=== PATIENT | male | born 1950 | race Caucasian/White ===

== ENCOUNTER 2021-05-03 23:48 | Observation (INO) | payer MEDICARE, MEDICAID ==
[2021-05-04 01:47] LABS: Troponin I Less than 0.010 ng/mL (< 0.028)
[2021-05-04] MEDS ORDERED: hydrALAZINE 20 MG/ML VIAL SLOW IVP PRN (01:58)
[2021-05-04] MEDS ORDERED: Acetaminophen 325 MG TAB PO PRN (01:58)
[2021-05-04] MEDS ORDERED: Ondansetron ODT 4 MG TAB PO PRN (01:58)
[2021-05-04] MEDS ORDERED: Acetaminophen 650 MG Suppository PR PRN (01:58)
[2021-05-04] MEDS ORDERED: Ondansetron PF 4 MG/2 ML Vial IVP PRN (01:58)
[2021-05-04 04:34] VITALS: BMI 24.5
[2021-05-04 04:49] LABS: Hemoglobin 15.6 g/dL (14.0-18.0); Mean Corpuscular HGB CONC 31.9 g/dL (32.0-36.0); Mean Corpuscular Hemoglobin 31.6 pg (27.0-31.0); Mean Platelet Volume 6.9 fL (7.4-10.4); Platelet Count 459 thou/uL (130-400); RBC Distribution Width 12.1 % (11.5-14.5); Red Blood Cell (RBC) Count 4.95 mill/uL (4.70-6.10); White Blood Cell (WBC) Count 13.3 thou/uL (4.8-10.8)
[2021-05-04 05:04] LABS: Anion Gap 10 mmol/L (10-20); BUN (Urea Nitrogen) 11 mg/dL (8.4-25.7); Calc. Creatinine Clearance 76 mL/min (70-130); Calcium 9.4 mg/dL (7.8-10.44); Carbon Dioxide 24 mmol/L (23-31); Cardiac Risk 4.7 (Less than 4.5); Chloride 107 mmol/L (98-107); Cholesterol 159 mg/dl (< 200 Desired); Glucose 83 mg/dL (80-115); HDL Cholesterol 34 mg/dL (>60 Neg Risk); LDL Cholesterol, Calculated 103 mg/dL; Potassium 4.2 mmol/L (3.5-5.1); Sodium 137 mmol/L (136-145); Triglycerides 108 mg/dL (Less than 150)
[2021-05-04 05:09] LABS: Troponin I Less than 0.010 ng/mL (< 0.028)
[2021-05-04 06:15] LABS: Eosinophils 3 % (0-10); Lymphocytes 46 % (21-51); MDiff Complete? YES; Monocytes 10 % (0-10); Neutrophil 39 % (42-75); Platelet Morphology Comment Appears Increased; Reactive Lymphocytes 2 % (0-10)
[2021-05-04] MEDS: Aspirin 81 mg Enteric Coated Tablet PO SCH (08:26)
[2021-05-04] MEDS: Enoxaparin Sodium 40 MG/0.4 ML SYRINGE SC SCH (08:26)
[2021-05-04] MEDS ORDERED: FLU VACC QS2021-22(65YR UP)/PF 240 MCG/0.7 ML SYRINGE IM ONE (09:00)
[2021-05-04] MEDS ORDERED: Clopidogrel Bisulfate 75 MG TAB PO SCH (13:00)
[2021-05-04 16:57] LABS: SARS-CoV-2 PCR by NAA Not Detected (NotDetected)
[2021-05-04] MEDS ORDERED: Atorvastatin Calcium 40 MG TAB PO SCH (21:00)
[2021-05-05] MEDS ORDERED: Clopidogrel Bisulfate 75 MG TAB PO SCH (09:00)
[2021-05-05] MEDS: Enoxaparin Sodium 40 MG/0.4 ML SYRINGE SC SCH (09:04)
[2021-05-05] MEDS: Aspirin 81 mg Enteric Coated Tablet PO SCH (09:04)
[2021-05-05 11:58] VITALS: BP 177/84; TEMP 98.1
== END 2021-05-05 14:18 | disposition home or self-care (01) ==
LOC: ERS 23:48 → 3SE 05-04 00:53
PROVIDERS: ADMIT Student in an Organized Health Care Education/Training Program; ATTEND Internal Medicine
DX: R47.81 Slurred speech (principal); R20.0 Anesthesia of skin; R47.1 Dysarthria and anarthria; I65.23 Occlusion and stenosis of bilateral carotid arteries; I10 Essential (primary) hypertension; I73.9 Peripheral vascular disease, unspecified; J44.9 Chronic obstructive pulmonary disease, unspecified; F17.210 Nicotine dependence, cigarettes, uncomplicated; D72.829 Elevated white blood cell count, unspecified; E78.5 Hyperlipidemia, unspecified; R00.1 Bradycardia, unspecified; Z23 Encounter for immunization; Z20.822 Contact with and (suspected) exposure to COVID-19
CPT/HCPCS: 70551; 80048; 80061; 84484 ×2; 85025; 90662; 93306; 96372; 97116; 97139 ×4; 99285; G0008; G0378 ×3; U0003; U0005; 36415; 90471; J1650

== ENCOUNTER 2023-08-22 18:00 | Inpatient (IN) | payer MEDICARE, MEDICAID, OTHER ==
[2023-08-22 21:41] VITALS: BMI 19.7
[2023-08-22] MEDS ORDERED: Acetaminophen 650 MG Suppository PR PRN (22:01)
[2023-08-22] MEDS ORDERED: Acetaminophen 325 MG TAB PO PRN (22:01)
[2023-08-22] MEDS ORDERED: Aspirin Chewable 81 MG TAB PO SCH (22:30)
[2023-08-22] MEDS ORDERED: Atorvastatin Calcium 40 MG TAB PO SCH (22:30)
[2023-08-23 06:46] LABS: #Basophils 0.1 thou/uL (0.0-0.2); #Eosinphils 0.4 thou/uL (0.0-0.7); #Monocytes 1.9 thou/uL (0.11-0.59); #Neutrophils 4.8 thou/uL (1.40-6.50); %Basophils 0.7 % (0.0-1.0); %Eosinophils 3.1 % (0.0-10.0); %Lymphocytes 36.4 % (21.0-51.0); %Monocytes 16.7 % (0.0-10.0); %Neutrophils 42.8 % (42.0-75.0); Hemoglobin 14.9 g/dL (14.0-18.0); Mean Corpuscular HGB CONC 33.9 g/dL (32.0-36.0); Mean Corpuscular Hemoglobin 33.4 pg (27.0-31.0); Mean Corpuscular Volume 98.7 fl (78.0-98.0); Mean Platelet Volume 9.5 fL (7.4-10.4); Platelet Count 382 10x3/uL (130-400); RBC Distribution Width 13.8 % (11.5-14.5); Red Blood Cell (RBC) Count 4.46 mill/uL (4.70-6.10); White Blood Cell (WBC) Count 11.3 10x3/uL (4.8-10.8)
[2023-08-23 07:11] LABS: Anion Gap 14 mmol/L (10-20); BUN (Urea Nitrogen) 9 mg/dL (8.4-25.7); Calc. Creatinine Clearance 80 mL/min (70-130); Calcium 9.2 mg/dL (7.8-10.44); Carbon Dioxide 24 mmol/L (23-31); Cardiac Risk 3.4 (Less than 4.5); Chloride 105 mmol/L (98-107); Cholesterol 131 mg/dl (< 200 Desired); Estimated GFR 96; Glucose 84 mg/dL (83-110); HDL Cholesterol 38 mg/dL (>60 Neg Risk); LDL Cholesterol, Calculated 74 mg/dL; Potassium 3.9 mmol/L (3.5-5.1); Sodium 139 mmol/L (136-145); Triglycerides 95 mg/dL (Less than 150)
[2023-08-23] MEDS ORDERED: FLU VACC QS2023(65UP)/MF59C/PF 60 MCG/0.5 ML SYRINGE IM ONE (09:00)
[2023-08-23] MEDS ORDERED: Enoxaparin 40 MG (0.4 mL) SYRINGE SC SCH (09:00)
[2023-08-23] MEDS: Aspirin 81 mg Enteric Coated Tablet PO SCH (09:05)
[2023-08-23] MEDS: Atorvastatin Calcium 40 MG TAB PO SCH (21:17)
[2023-08-24] MEDS ORDERED: CEFAZOLIN 2 GM in Sodium Chloride 0.9% 100 ML IVPB SCH (06:00)
[2023-08-24] MEDS: Aspirin 81 mg Enteric Coated Tablet PO SCH (08:45)
[2023-08-24] MEDS ORDERED: Heparin 5,000 UNITS/ML VIAL ONE (11:14)
[2023-08-24] MEDS ORDERED: Bupivacaine PF 0.5% 30 ML VIAL ONE (11:15)
[2023-08-24] MEDS ORDERED: Protamine Sulfate 50 MG/5 ML VIAL ONE (11:15)
[2023-08-24] MEDS ORDERED: EPINEPHrine 1 MG/ML VIAL ONE (11:15)
[2023-08-24] MEDS ORDERED: Etomidate 40 MG (20 mL) VIAL ONE (11:16)
[2023-08-24] MEDS ORDERED: PHENYLEPHRINE-NS 100 MCG/ML 10 ML SYRINGE ONE (11:19)
[2023-08-24] MEDS ORDERED: CEFAZOLIN 2 GM VIAL ONE (11:25)
[2023-08-24] MEDS ORDERED: Sodium Chloride 0.9% 100 ML ONE (11:25)
[2023-08-24] MEDS ORDERED: fentaNYL PF 100 MCG/2 ML SYRINGE ONE ×2 (11:32→11:50)
[2023-08-24] MEDS ORDERED: Rocuronium Bromide 10 MG/ML (10ML VIAL) ONE (11:39)
[2023-08-24] MEDS ORDERED: Heparin 10,000 UNITS/ 10 ML VIAL ONE (11:57)
[2023-08-24] MEDS ORDERED: ePHEDrine Sulfate 50 MG/10 ML VIAL ONE (11:59)
[2023-08-24] MEDS ORDERED: Ondansetron PF 4 MG/2 ML Vial ONE (12:33)
[2023-08-24] MEDS ORDERED: SUGAMMADEX SODIUM 200 MG/2 ML VIAL ONE (12:35)
[2023-08-24] MEDS ORDERED: Labetalol HCl 100 MG/20 ML VIAL ONE (12:41)
[2023-08-24] MEDS ORDERED: hydrALAZINE 20 MG/ML VIAL SLOW IVP PRN (12:44)
[2023-08-24] MEDS ORDERED: traMADol HCl 50 MG TAB PO PRN (12:44)
[2023-08-24] MEDS ORDERED: Nitroglycerin 50 MG/250 ML BOT 250 ML IVPB PRN (12:44)
[2023-08-24] MEDS ORDERED: Phenylephrine 40 MG in Sodium Chloride 0.9% 250 ML 250 ML IVPB PRN (12:44)
[2023-08-24] MEDS ORDERED: Acetaminophen 325 MG TAB PO PRN (12:44)
[2023-08-24] MEDS ORDERED: Ipratropium/Albuterol 3 ML NEB NEB PRN (12:44)
[2023-08-24] MEDS ORDERED: fentaNYL 50 mcg/mL 1 mL Vial SLOW IVP PRN (12:44)
[2023-08-24] MEDS ORDERED: Ondansetron PF 4 MG/2 ML Vial IVP PRN (12:44)
[2023-08-24] MEDS ORDERED: Ondansetron HCl/PF 4 MG/2 ML Vial IVP PRN (13:01)
[2023-08-24] MEDS: Sodium Chloride 0.9% 1,000 ML IV SCH (13:44)
[2023-08-24 13:46] VITALS: BP 156/80
[2023-08-24] MEDS: traMADol HCl 50 MG TAB PO PRN (14:06)
[2023-08-24] MEDS: Ipratropium/Albuterol 3 ML NEB NEB SCH ×2 (14:14→19:09)
[2023-08-24] MEDS: CEFAZOLIN 2 GM in Sodium Chloride 0.9% 100 ML IVPB SCH (21:15)
[2023-08-24] MEDS: Atorvastatin Calcium 40 MG TAB PO SCH (21:18)
[2023-08-25] MEDS: Sodium Chloride 0.9% 1,000 ML IV SCH ×2 (00:13→07:57)
[2023-08-25] MEDS: Ipratropium/Albuterol 3 ML NEB NEB SCH ×3 (00:41→13:36)
[2023-08-25] MEDS: CEFAZOLIN 2 GM in Sodium Chloride 0.9% 100 ML IVPB SCH ×2 (03:49→12:45)
[2023-08-25 05:44] LABS: #Basophils 0.1 thou/uL (0.0-0.2); #Eosinphils 0.2 thou/uL (0.0-0.7); #Monocytes 1.9 thou/uL (0.11-0.59); %Basophils 0.6 % (0.0-1.0); %Eosinophils 1.5 % (0.0-10.0); %Lymphocytes 27.6 % (21.0-51.0); %Monocytes 14.7 % (0.0-10.0); %Neutrophils 55.4 % (42.0-75.0); Hematocrit 40.5 % (42.0-52.0); Hemoglobin 13.4 g/dL (14.0-18.0); Mean Corpuscular HGB CONC 33.1 g/dL (32.0-36.0); Mean Corpuscular Hemoglobin 33.6 pg (27.0-31.0); Mean Corpuscular Volume 101.5 fl (78.0-98.0); Mean Platelet Volume 9.1 fL (7.4-10.4); Platelet Count 372 10x3/uL (130-400); RBC Distribution Width 13.9 % (11.5-14.5); Red Blood Cell (RBC) Count 3.99 mill/uL (4.70-6.10); White Blood Cell (WBC) Count 12.7 10x3/uL (4.8-10.8)
[2023-08-25 06:11] LABS: Anion Gap 9 mmol/L (10-20); BUN (Urea Nitrogen) 10 mg/dL (8.4-25.7); Calc. Creatinine Clearance 72 mL/min (70-130); Calcium 8.6 mg/dL (7.8-10.44); Carbon Dioxide 24 mmol/L (23-31); Chloride 107 mmol/L (98-107); Estimated GFR 93; Glucose 70 mg/dL (83-110); Potassium 4.1 mmol/L (3.5-5.1); Sodium 136 mmol/L (136-145)
[2023-08-25 08:09] VITALS: TEMP 98.6
[2023-08-25] MEDS ORDERED: Aspirin 325 mg Enteric Coated Tablet PO SCH (09:00)
[2023-08-25] MEDS: traMADol HCl 50 MG TAB PO PRN (12:44)
== END 2023-08-25 15:20 | disposition home or self-care (01) | DRG 38 ==
LOC: 2SE 21:00 → OBSVTOIN 22:01 → CCU 08-24 11:26 → 2SE 08-24 11:26 → CCU 08-24 12:59
PROVIDERS: ADMIT Family Medicine; ATTEND Family Medicine
PROC: 4A10X4Z Monitoring of Central Nervous Electrical Activity, External Approach (ICD-10-PCS; 2023-08-23)
PROC: 03CN0ZZ Extirpation of Matter from Left External Carotid Artery, Open Approach (ICD-10-PCS; principal; 2023-08-24)
PROC: 03UN0KZ Supplement Left External Carotid Artery with Nonautologous Tissue Substitute, Open Approach (ICD-10-PCS; 2023-08-24)
DX: I63.232 Cerebral infarction due to unspecified occlusion or stenosis of left carotid arteries (principal); G81.90 Hemiplegia, unspecified affecting unspecified side; F17.210 Nicotine dependence, cigarettes, uncomplicated; I10 Essential (primary) hypertension; J44.9 Chronic obstructive pulmonary disease, unspecified; I73.9 Peripheral vascular disease, unspecified; Z79.82 Long term (current) use of aspirin; Z79.899 Other long term (current) drug therapy
CPT/HCPCS: 36415; 70551; 80048; 80061; 84443; 85025; 94640; 95711; 95819; C1768; J0171; J0360; J0665; J1644; J1650; J2405; J2720; J3490; J7050; J7620

== ENCOUNTER 2024-01-27 15:04 | Inpatient (IN) | payer MEDICARE, MEDICAID ==
[2024-01-27 16:15] VITALS: BMI 19.3
[2024-01-27] MEDS ORDERED: Albuterol 200 PUFF (6.7GM INHALER) INH PRN (17:37)
[2024-01-27] MEDS: Lidocaine 2% Viscous Solution 20 ML, Aluminum & Magnesium Hydroxide 30 ML, Donnatal Eli... SSW SCH (18:06)
[2024-01-27] MEDS: Potassium Chloride 20 MEQ TAB PO SCH (18:06)
[2024-01-27] MEDS: Nicotine 21 MG PATCH TD SCH (18:06)
[2024-01-27] MEDS: Ipratropium/Albuterol 3 ML NEB NEB SCH (19:15)
[2024-01-27] MEDS: Atorvastatin Calcium 40 MG TAB PO SCH (20:33)
[2024-01-27] MEDS: Famotidine 20 MG TAB PO SCH (20:34)
[2024-01-27] MEDS: Acetaminophen 325 MG TAB PO PRN (23:16)
[2024-01-28 04:53] LABS: #Basophils 0.09 10x3/uL (0.0-0.2); %Basophils 0.6 % (0.0-1.0); %Eosinophils 1.4 % (0.0-10.0); %Lymphocytes 25.2 % (21.0-51.0); %Monocytes 16.9 % (0.0-10.0); %Neutrophils 55.4 % (42.0-75.0); Hematocrit 42.7 % (42.0-52.0); Hemoglobin 14.7 g/dL (14.0-18.0); Mean Corpuscular HGB CONC 34.4 g/dL (32.0-36.0); Mean Corpuscular Hemoglobin 33.5 pg (27.0-31.0); Mean Corpuscular Volume 97.3 fL (78.0-98.0); Mean Platelet Volume 9.2 fL (7.4-10.4); Platelet Count 309 10x3/uL (130-400); RBC Distribution Width 13.7 % (11.5-14.5); Red Blood Cell (RBC) Count 4.39 mill/uL (4.70-6.10)
[2024-01-28 05:08] LABS: Anion Gap 14 mmol/L (10-20); BUN (Urea Nitrogen) 8 mg/dL (8.4-25.7); Calc. Creatinine Clearance 89 mL/min (70-130); Calcium 8.7 mg/dL (7.8-10.44); Carbon Dioxide 21 mmol/L (23-31); Cardiac Risk 2.7 (Less than 4.5); Chloride 108 mmol/L (98-107); Cholesterol 79 mg/dl (< 200 Desired); Estimated GFR 100; Glucose 91 mg/dL (83-110); HDL Cholesterol 29 mg/dL (>60 Neg Risk); LDL Cholesterol, Calculated 38 mg/dL; Potassium 3.5 mmol/L (3.5-5.1); Sodium 139 mmol/L (136-145); Triglycerides 58 mg/dL (Less than 150)
[2024-01-28 05:10] LABS: Hemoglobin A1c 5.2 % (4.0-6.0)
[2024-01-28] MEDS: Enoxaparin 40 MG (0.4 mL) SYRINGE SC SCH (09:03)
[2024-01-28] MEDS: Lisinopril 10 MG TAB PO SCH (09:03)
[2024-01-28] MEDS: Aspirin 81 mg Enteric Coated Tablet PO SCH (09:03)
[2024-01-28 10:20] LABS: Troponin I Less than 0.010 ng/mL (< 0.028)
[2024-01-28 11:08] VITALS: BMI 19.3
[2024-01-28] MEDS ORDERED: Regadenoson 0.4 MG/5 ML SYRINGE ONE (12:10)
[2024-01-29 11:45] LABS: #Basophils 0.08 10x3/uL (0.0-0.2); %Basophils 0.7 % (0.0-1.0); %Eosinophils 3.2 % (0.0-10.0); %Lymphocytes 24.2 % (21.0-51.0); %Monocytes 18.2 % (0.0-10.0); %Neutrophils 53.5 % (42.0-75.0); Hematocrit 42.1 % (42.0-52.0); Hemoglobin 14.3 g/dL (14.0-18.0); Mean Corpuscular Hemoglobin 33.2 pg (27.0-31.0); Mean Corpuscular Volume 97.7 fL (78.0-98.0); Mean Platelet Volume 9.8 fL (7.4-10.4); Platelet Count 344 10x3/uL (130-400); RBC Distribution Width 13.9 % (11.5-14.5); Red Blood Cell (RBC) Count 4.31 mill/uL (4.70-6.10)
[2024-01-29 11:57] LABS: Anion Gap 14 mmol/L (10-20); BUN (Urea Nitrogen) 12 mg/dL (8.4-25.7); Calc. Creatinine Clearance 85 mL/min (70-130); Calcium 8.7 mg/dL (7.8-10.44); Carbon Dioxide 20 mmol/L (23-31); Chloride 106 mmol/L (98-107); Estimated GFR 99; Glucose 93 mg/dL (83-110); Potassium 3.7 mmol/L (3.5-5.1); Sodium 136 mmol/L (136-145)
[2024-01-30] MEDS ORDERED: Ipratropium/Albuterol 3 ML NEB ONE (02:54)
[2024-01-30 04:22] LABS: #Basophils 0.07 10x3/uL (0.0-0.2); %Basophils 0.6 % (0.0-1.0); %Lymphocytes 38.4 % (21.0-51.0); %Monocytes 17.1 % (0.0-10.0); %Neutrophils 38.8 % (42.0-75.0); Hemoglobin 13.7 g/dL (14.0-18.0); Mean Corpuscular HGB CONC 34.3 g/dL (32.0-36.0); Mean Corpuscular Hemoglobin 32.6 pg (27.0-31.0); Mean Corpuscular Volume 95.2 fL (78.0-98.0); Mean Platelet Volume 9.3 fL (7.4-10.4); Platelet Count 364 10x3/uL (130-400)
[2024-01-30 04:37] LABS: ALT (SGPT) 18 U/L (8-55); AST (SGOT) 16 U/L (5-34); Albumin 2.7 g/dL (3.4-4.8); Alkaline Phosphatase 124 U/L (40-110); Anion Gap 9 mmol/L (10-20); BUN (Urea Nitrogen) 13 mg/dL (8.4-25.7); Bilirubin, Total 0.4 mg/dL (0.2-1.2); Calc. Creatinine Clearance 84 mL/min (70-130); Calcium 8.6 mg/dL (7.8-10.44); Carbon Dioxide 24 mmol/L (23-31); Chloride 108 mmol/L (98-107); Estimated GFR 99; Globulin 3.2 g/dL (2.4-3.5); Glucose 98 mg/dL (83-110); Potassium 3.1 mmol/L (3.5-5.1); Protein, Total 5.9 g/dL (5.8-8.1); Sodium 138 mmol/L (136-145)
[2024-01-30] MEDS: Potassium Chloride 20 MEQ TAB PO SCH (09:57)
[2024-01-30] MEDS ORDERED: Ipratropium/Albuterol 3 ML NEB NEB PRN (09:57)
[2024-01-31 06:58] LABS: #Basophils 0.07 10x3/uL (0.0-0.2); %Basophils 0.7 % (0.0-1.0); %Eosinophils 5.7 % (0.0-10.0); %Lymphocytes 43.8 % (21.0-51.0); %Monocytes 15.2 % (0.0-10.0); %Neutrophils 34.4 % (42.0-75.0); Hematocrit 44.8 % (42.0-52.0); Hemoglobin 15.2 g/dL (14.0-18.0); Mean Corpuscular HGB CONC 33.9 g/dL (32.0-36.0); Mean Corpuscular Volume 97.4 fL (78.0-98.0); Mean Platelet Volume 9.2 fL (7.4-10.4); Platelet Count 432 10x3/uL (130-400); RBC Distribution Width 13.9 % (11.5-14.5)
[2024-01-31 07:17] LABS: ALT (SGPT) 21 U/L (8-55); AST (SGOT) 17 U/L (5-34); Albumin 3.1 g/dL (3.4-4.8); Alkaline Phosphatase 128 U/L (40-110); Anion Gap 15 mmol/L (10-20); Bilirubin, Total 0.6 mg/dL (0.2-1.2); Calc. Creatinine Clearance 80 mL/min (70-130); Calcium 9.5 mg/dL (7.8-10.44); Carbon Dioxide 21 mmol/L (23-31); Chloride 106 mmol/L (98-107); Estimated GFR 96; Globulin 3.6 g/dL (2.4-3.5); Glucose 85 mg/dL (83-110); Potassium 3.9 mmol/L (3.5-5.1); Protein, Total 6.7 g/dL (5.8-8.1); Sodium 138 mmol/L (136-145)
[2024-01-31 07:36] LABS: BUN (Urea Nitrogen) 8 mg/dL (8.4-25.7)
[2024-01-31] MEDS ORDERED: Iopamidol 370 76% 100 ML VIAL ONE (12:45)
[2024-01-31] MEDS ORDERED: traMADol HCl 50 MG TAB PO PRN (17:39)
[2024-02-01 04:38] LABS: #Basophils 0.08 10x3/uL (0.0-0.2); %Basophils 0.7 % (0.0-1.0); %Eosinophils 4.9 % (0.0-10.0); %Lymphocytes 40.9 % (21.0-51.0); %Monocytes 12.1 % (0.0-10.0); Hematocrit 43.8 % (42.0-52.0); Mean Corpuscular HGB CONC 34.2 g/dL (32.0-36.0); Mean Corpuscular Hemoglobin 32.8 pg (27.0-31.0); Mean Corpuscular Volume 95.6 fL (78.0-98.0); Mean Platelet Volume 9.4 fL (7.4-10.4); Platelet Count 423 10x3/uL (130-400); RBC Distribution Width 13.9 % (11.5-14.5); Red Blood Cell (RBC) Count 4.58 mill/uL (4.70-6.10)
[2024-02-01 04:53] LABS: ALT (SGPT) 25 U/L (8-55); AST (SGOT) 18 U/L (5-34); Alkaline Phosphatase 116 U/L (40-110); Anion Gap 10 mmol/L (10-20); BUN (Urea Nitrogen) 11 mg/dL (8.4-25.7); Bilirubin, Total 0.6 mg/dL (0.2-1.2); Calc. Creatinine Clearance 79 mL/min (70-130); Calcium 9.3 mg/dL (7.8-10.44); Carbon Dioxide 25 mmol/L (23-31); Chloride 106 mmol/L (98-107); Estimated GFR 96; Globulin 3.7 g/dL (2.4-3.5); Glucose 77 mg/dL (83-110); Potassium 3.8 mmol/L (3.5-5.1); Protein, Total 6.7 g/dL (5.8-8.1); Sodium 137 mmol/L (136-145)
[2024-02-01] MEDS: Clopidogrel Bisulfate 75 MG TAB PO SCH (09:18)
[2024-02-01 12:07] VITALS: BP 143/69; TEMP 98.6
== END 2024-02-01 15:05 | disposition home or self-care (01) | DRG 357 ==
LOC: 2NO 15:04 → INTOOBSV 15:04 → OBSVTOIN 01-29 08:35
PROVIDERS: ADMIT Family Medicine; ATTEND Family Medicine
PROC: 04753DZ Dilation of Superior Mesenteric Artery with Intraluminal Device, Percutaneous Approach (ICD-10-PCS; principal; 2024-01-31)
PROC: B4101ZZ Fluoroscopy of Abdominal Aorta using Low Osmolar Contrast (ICD-10-PCS; 2024-01-31)
DX: K55.059 Acute (reversible) ischemia of intestine, part and extent unspecified (principal); E44.0 Moderate protein-calorie malnutrition; I74.5 Embolism and thrombosis of iliac artery; N28.0 Ischemia and infarction of kidney; Z68.1 Body mass index [BMI] 19.9 or less, adult; I10 Essential (primary) hypertension; E78.5 Hyperlipidemia, unspecified; I25.10 Atherosclerotic heart disease of native coronary artery without angina pectoris; F17.210 Nicotine dependence, cigarettes, uncomplicated; E87.6 Hypokalemia; D72.829 Elevated white blood cell count, unspecified; I70.8 Atherosclerosis of other arteries; I73.9 Peripheral vascular disease, unspecified; J44.9 Chronic obstructive pulmonary disease, unspecified; Z79.82 Long term (current) use of aspirin; Z79.899 Other long term (current) drug therapy; Z90.49 Acquired absence of other specified parts of digestive tract; Z98.890 Other specified postprocedural states
CPT/HCPCS: 36245; 36415; 37236; 75726; 78452; 80048; 80053; 80061; 83036; 84439; 84443; 84484; 85025; 93017; 94640; 96372; A9502; C1760; C1769; C1874; C1887; C1894; G0378; J1650; J2785; J7620; Q9967